=== PATIENT | female | born 2000 | race Caucasian/White ===

== ENCOUNTER 2025-07-01 15:56 | Outpatient (CLI) | payer OTHER, SELFPAY ==
--- NOTE | ~2025-07-01 | XR_ITS ---
EXAMINATION: XR sacroiliac joints min 3V, 07/01/2025 16:10 CDT HISTORY: chronic right-sided low back pain wo sciatica, bulging disc COMPARISON: No comparisons available. Findings: No acute fracture or malalignment. There is no sclerosis of the sacroiliac joints, no erosions, no bridging osteophyte formation Soft tissues unremarkable. Impression: No acute fracture or malalignment. Reviewed, dictated and finalized at location P. Impression: No acute fracture or malalignment.
--- OUTSIDE RECORDS SUMMARY | 2025-07-01 16:16 | XMS_ITS | Encounter Summary ---
Author Organization [facility] Address [address] [place] [address] Phone Care Team Providers Care Information Systems Coordinator Name Role Phone Candy Barbosa MD Unavailable [phone] Gunner Guzman MD Unavailable [facility] Keyur Locke MD Primary Care Provider [phone] Encounter Details Date Type Department Care Team (Late st Contact Info) Description 02/18[facility] [address] [place] [address] Antoinette Goldberg MD [address] [place] [address] Other primary thrombophilia; Raised antibody titer; Activated protein C resistance (HCC); Complete or unspecified spontaneous without complication; Excessive and frequent menstruation with regular cycle; Spontaneous ecchymoses Social History Tobacco Use Types Packs/Day Years Used Date Smoking Tobacco: Never Smokeless Tobacco: Never Alcohol Use Standard Drinks/Week Comments Yes 0 (1 standard drink = 0.6 oz pur e alcohol) Socially [facility] Utilities Answer Date Recorded In the past 12 months has th e electric, gas, oil, or water company threatened to shut off services in your home? No 01/28/2025 Social Connection and Isolation Panel Answer Date Recorded In a typical week, how many times do you talk on the phone with family, friends, or neighbors? More than three times a week 01/28/2025 How often do you get togethe r with friends or relatives? Three times a week 01/28/2025 How often do you attend chur ch or buddhism services? Never 01/28/2025 Do you belong to any clubs o r organizations such as sabianist groups, unions, fraternal or athletic groups, or school groups? No 01/28/2025 How often do you attend meet ings of the clubs or organizations you belong to? Never 01/28/2025 Are you , , di vorced, , never , or living with a partner? 01/28/2025 AUDIT-C Answer Date Recorded Q1: How often do you have a drink containing alc ohol? Monthly or less 01/28/2025 Q2: How many drinks containi ng alcohol do you have on a typical day when you are drinking? 3 or 4 01/28/2025 Q3: How often do you have si x or more drinks on one occasion? Less than monthly 01/28/2025 Overall Financial Resource Strain (CARDIA) Answe r Date Recorded How hard is it for you to pa y for the very basics like food, housing, medical care, and heating? Not hard at all 01/28/2025 [facility] - Occupational Stress Questionnaire Answer Date Recorded Do you feel stress - tense, restless, nervous, or anxious, or unable to sleep at night because your mind is troubled all the time - these days? Not at all 01/28/2025 Exercise Vital Sign Answer Date Recorde d On average, how many days pe r week do you engage in moderate to strenuous exercise (like a brisk walk)? 3 days 01/28/2025 On average, how many minutes do you engage in exercise at this level? 40 min 01/28/2025 Hunger Vital Sign Answer Date Recorded Within the past 12 months, y ou worried that your food would run out before you got the money to buy more. Never true 01/29/20 25 Within the past 12 months, t he food you bought just didn't last and you didn't have money to get more. Never true 01/28/2025 PRAPARE - Transportation Answer Date Re corded In the past 12 months, has l ack of transportation kept you from medical appointments or from getting medications? No 01/17 In the past 12 months, has l ack of transportation kept you from meetings, work, or from getting things needed for daily living? No 01/28/2025 Housing Stability Vital Sign Answer Gabino e Recorded In the last 12 months, was t here a time when you were not able to pay the mortgage or rent on time? No 01/28/2025 In the past 12 months, how m any times have you moved where you were living? 0 01/28/2025 At any time in the past 12 m [facility], were you homeless or living in a prison (including now)? 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 Gender Identity Not on file Sexual Orientation Not on file documented as of this encounter Plan of Treatment Not on file documented as of this encounter Procedures Procedure Name Priority Date/Time Associated Diagnosis Comments FERRITIN Routine 02/18/2025 10:15 AM CDT Other primary thrombophilia Raised antibody titer Activated protein C resistance (HCC) Complete or unspecified spontaneous without complication Excessive and frequent menstruation with regular cycle Spontaneous ecchymoses documented in this encounter Results * FERRITIN (02/18/2025 10:15 AM CDT) FERRITIN 94 5 - 204 ng/mL 02/18/2025 8:37 PM CDT [facility] Blood 02/18/2025 10:1 5 AM CDT 02/18/2025 7:08 PM CDT us Antoinette Atkins MD CHEMISTRY ORDER NILDA Final Result [facility] [address] [place] [address], documented in this encounter Visit Diagnoses Diagnosis Other primary thrombophilia Raised antibody titer Other and unspecified nonspecific immunological findings Activated protein C resistance Primary hypercoagulable state Complete or unspecified spontaneous without complication Reserved for inherently not codable concepts WITHOUT codable children Excessive and frequent menstruation with regular cycle Excessive or frequent menstruation Spontaneous ecchymoses documented in this encounter Care Teams Information Systems Coordinator Relationship Specialty Start Date End Date Keyur Locke MD [address] [place] [address] [facility] [address] [place] [address] PCP - General Family Medicine 01/30/25 Candy Barbosa MD [address] [place] [address] Consulting Physician Neurology 02/15/14 Gunner Guzman MD [address] [place] [address] Consulting Physician Neurology with Special Qualification in Child Neurology 06/20/17 documented as of this encounter
--- OUTSIDE RECORDS SUMMARY | 2025-07-01 16:16 | XMS_ITS | Clinical Summary ---
Author Organization [place] [address] [address] [facility] Address [address] [place] [address] Care Team Providers Care Electronic Specialist Name Role Phone Keyur Locke MD Primary Care Provider Allergies Active Allergy Reactions Criticality Noted Date Comments Amoxicillin Hives,Rash High 07/18/2012 Beef Containing Products Nausea And Vomiting Medium Cefprozil Hives,Rash Medium 07/18/2012 Chicken Derived Nausea And Vomiting Medium 06/21/2023 Clindamycin Hives,Rash Medium 07/18/2012 [place] Containing Products Nausea And Vomiting Medium Divalproex Sodium Hives,Rash Medium 07/18/2012 And vomiting Lactulose Unknown 07/18/2012 Nut Flavor Anaphylaxis,Hives,Sh or tness of breath High 03/29/2023 Peas Nausea And Vomiting,Nausea & Vomiting Medium 06/21/2023 Medications Trelegy Ellipta 200-62.5-25 mcg inhaler INHALE 1 PUFF INTO LUNGS EVERY 24 HOURS Active montelukast (SINGULAIR) 10 mg tablet Take 1 tablet (10 mg total) by mouth nightly 06/04/2025 Active Active Problems Problem Noted Date Diagnosed Date Chronic right-sided low back pain without sciati ca 06/21/2025 Assessment & Plan (06/21/2025 12:19 PM CDT): She does describe low back pain/stiffness which sounds inflammatory, though do not suspect that this is relevant in terms of her miscarriages it does warrant additional evaluation. Will obtain SI joint xray. Positive CLARISSA (antinuclear antibody) 06/20/2025 Assessment & Plan (06/21/2025 12:18 PM CDT): 24yoF presents for evaluation due to labs showing a +CLARISSA (no titer) with an PROOF CARRIER of 2.7. 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 She denies inflammatory sounding peripheral joint pain, though does have axial complaints (see below). She reports many rashes with environmental allergies, dry eyes with contacts, and painful oral ulcers. Denies other active CTD symptoms. Her exam today is largely unremarkable, mild tenderness of a couple joints in her hands though these do not give her trouble. Overall low suspicion that the PROOF CARRIER is clinically significant, reviewed the nonspecific nature of an CLARISSA. Will plan to obtain the AVISE panel to evaluate further and follow up in 2 weeks to review results. Encounters Date Type Department Care Team Description 06/21/2025 10:00 AM CDT Office Visit [facility] [address] [place] [phone] Crystal Wilson PA Positive CLARISSA (antinuclear antibody) (Primary Dx); Chronic right-sided low back pain without sciatica from Last 3 Months Social History Tobacco Use Types Packs/Day Years Used Date Smoking Tobacco: Never Assessed Comments Unknown Sex and Gender Information Value Date Recorded Sex Assigned at Not on file Legal Sex Female 8:19 AM CDT Gender Identity Not on file Sexual Orientation Not on file Obstetrics History Last Filed Vital Signs Vital Sign Reading Time Taken Comments Blood Pressure 102/60 06/21/2025 9:41 AM CDT Pulse 96 06/21/2025 9:41 AM CDT Temperature - - Respiratory Rate - - Oxygen Saturation 96% 06/21/2025 9:41 AM CDT Inhaled Oxygen Concentration - - Weight 98.4 kg (217 lb) 06/21/2025 9:41 AM CDT Height - - Body Mass Index - - Plan of Treatment Health Maintenance Due Date Last Done Comments Cervical Cancer Screening 2000 Depression Screening 2000 Hepatitis C Screening 2000 Varicella Vaccines (1 of 2 - 13+ 2-dose series) 2013 Regular Well Visit/Exam 18-64 2018 Pneumococcal vaccine <65 (1 of 2 - PCV) 2019 DTaP/Tdap/Td Vaccine (7 - Td or Tdap) 02/24/2022 02/25/2012, 02/08/2006, 10/26/2001, Additional history exists Influenza Vaccine (#1) 2025 , 09/22/2020, 08/23/2018, Additional history exists Hepatitis B Screening Completed 07/28/2001 , 2000, 2000 HPV Vaccines Completed 01/21/2015, 02/18, 04/04/2013 Insurance [facility] H[facility]/PPO Address: [place] [address] Care Teams Electronic Specialist Relationship Specialty Start Date End Date Keyur Locke MD [facility] LILIANA HUGO [address] [address] PCP - General Family Medicine 05/09/25
--- OUTSIDE RECORDS SUMMARY | 2025-07-01 16:16 | XMS_ITS | Encounter Summary ---
Author Organization [facility] Address [address] [place] [address] Phone Care Team Providers Care Director Of Volunteer Services Name Role Phone JessicajoseCandy MD Unavailable [phone] Gunner Guzman MD Unavailable Ashley James APRN, CNP Primary Care Provider Keyur Locke MD Primary Care Provider [phone] Encounter Details Date Type Department Care Team (Late st Contact Info) Description 12/14/2024 [facility] [address] [place] [address] Belia Falk MD [facility] [address] [address] Social History Tobacco Use Types Packs/Day Years Used Date Smoking Tobacco: Never Smokeless Tobacco: Never Alcohol Use Standard Drinks/Week Comments No 0 (1 standard drink = 0.6 oz pur e alcohol) Comments No Sex and Gender Information Value Date Recorded Sex Assigned at Not on file 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 Gender Identity Not on file Sexual Orientation Not on file documented as of this encounter Plan of Treatment Not on file documented as of this encounter Procedures Procedure Name Priority Date/Time Associated Diagnosis Comments PATHOLOGY SURGICAL Routine 12/14/2024 1: 15 PM CDT documented in this encounter Results * PATHOLOGY SURGICAL (12/14/2024 1:15 PM CDT) Case Report Surgical Pathology Report Case: [id number] Authorizing Provider: Belia Falk MD Collected: 12/14/2024 01:15 PM Ordering Location: [facility] Received: 12/14/2024 06:07 PM [facility] Laboratory Services Pathologist: Vivi Hussein MD Specimen: Products Of Conception 12/20/2024 10:49 AM CDT [facility] FINAL DIAGNOSIS A. Products of conception: Endometrium and decidual tissue. Negative for chorionic villi. 12/20/2024 10:49 AM CDT [facility] at 1049 CDT Gross Description A. Products Of Conception Received fresh labeled products of conception, Namita Nguyen. Spongy pieces of purple-martínez tissue and blood clot, in aggregate 2.2 x 2 x 0.4 cm. No parts or cystic structures are grossly noted. Entirely submitted in a single cassette. Cherrie Reese 12/20/2024 10:49 AM CDT [facility] Microscopic Description Microscopic examination performed. Dr Belia Falk notified of the diagnosis on 12/20/2024 at 10:49 a.m. Specimen processed and evaluated at [facility], [place], [place]. This document was completed utilizing speech recognition software. Grammatical errors, random word insertions, pronoun errors, and incomplete sentences are an occasional consequence of this system due to software limitations, ambient noise, and hardware issues. Any formal questions or concerns about the content, text or information contained within the body of this dictation should be directly addressed to the provider for clarification. 12/20/2024 10:49 AM CDT [facility] Other PRODUCTS OF CONCEPTION TISSUE SPECIMEN / Unknown 12/14/2024 1:15 PM CDT 12/14/2024 6:07 PM CDT us Belia Falk MD PATHOLOGY/CYTOLOGY ORDERABLES Fi nal Result [facility] [address] [place] [place] [address], [place] documented in this encounter Visit Diagnoses Not on filedocumented in this encounter Care Teams Director Of Volunteer Services Relationship Specialty Start Date End Date Ashley Tariq, THERAPY TEACHER, LOOPER FIXER [address] [facility] [place] [address] PCP - General Certified Nurse Practitioner 02/24/21 01/29/25 Keyur Locke MD [address] [place] [address] [address] [place] [address] PCP - General Family Medicine 01/30/25 Candy Barbosa MD [address] [place] [address] Consulting Physician Neurology 02/15/14 Gunner Guzman MD [address] [place] [address] Consulting Physician Neurology with Special Qualification in Child Neurology 06/20/17 documented as of this encounter
--- OUTSIDE RECORDS SUMMARY | 2025-07-01 16:16 | XMS_ITS | Encounter Summary ---
Author Organization [facility] Address [address] [place] [address] Phone Care Team Providers Care Ela Teacher Name Role Phone Candy Barbosa MD Unavailable [phone] Gunner Guzman MD Unavailable Ashley James APRN, CNP Primary Care Provider Keyur Locke MD Primary Care Provider [phone] Reason for Referral * Laboratory Services (Routine) - Closed Specialty Diagnoses / Procedures Referred By Contdelmer t Referred To Contact Diagnoses History of recurrent miscarriages, not currently Procedures FACTOR 2 PROTHROMBIN GENE Belia Falk MD [address] [address] Phone: tel: fax: Referral ID Status Reason Start Date Expiration Date Visits Re quested Visits Authorized [id number] Closed 01/03/2025 1 1 * Laboratory Services (Routine) - Closed Specialty Diagnoses / Procedures Referred By Contdelmer ba Referred To Contact Diagnoses History of recurrent miscarriages, not currently Procedures FACTOR 5 LEIDEN GENE MUTATION Belia Falk MD [address] [address] Phone: tel: fax: Referral ID Status Reason Start Date Expiration Date Visits Re quested Visits Authorized [id number] Closed 01/03/2025 1 1 Encounter Details Date Type Department Care Team (Latest Contact Info) Description 01/03/2025 Transcribe Orders [facility] Patient Access Admitting [address] [place] [id number] Belia Falk MD [address] [facility] [address] [place] [address] History of recurrent miscarriages, not currently (Primary Dx) Social History Tobacco Use Types Packs/Day Years Used Date Smoking Tobacco: Never Smokeless Tobacco: Never Alcohol Use Standard Drinks/Week Comments No 0 (1 standard drink = 0.6 oz pur e alcohol) Comments No Sex and Gender Information Value Date Recorded Sex Assigned at Not on file 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 If indicated consider PC activity assay. ADDITIONAL INFORMATION This test has been modified from the insulation worker interior surface's instructions. Its performance characteristics were determined by [facility] in a manner consistent with CLIA requirements. This test has not been cleared or approved by the U.S. Food and Drug Administration. Test Performed by: [address] [address] Labor And Delivery Registered Nurse: Lucita Rojas Ph.D.; CLIA# [id number] Blood Butterfly Punctu re / Unknown 01/03/2025 2:39 PM CDT 01/03/2025 2:39 PM CDT us Belia Falk MD LAB SEND OUTS Final Result [facility] * (ABNORMAL) HANNAH PANEL (01/03/2025 2:39 PM CDT) DNA AB, DOUBLE STRAND <1 <5 IU/mL 01/03/2025 4:40 PM CDT [facility] Comment: <= 4 Negative 5-9 Indeterminate >= 10 Positive CHROMATIN AB 0.2 <1.0 AI 01/03/2025 4:40 PM CDT [facility] RIBOSOMAL P AB <0.2 <1.0 AI 01/03/2025 4:40 PM CDT [facility] SS-A <0.2 <1.0 AI 01/03/2025 4:40 PM CDT [facility] SS-B 0.2 <1.0 AI 01/03/2025 4:40 PM CDT [facility] CENTROMERE B AB <0.2 <1.0 AI 4:40 PM CDT [facility] SM ANTIBODY <0.2 <1.0 AI 01/03/2025 4:40 PM CDT [facility] SM GENERATOR REPAIRER <0.2 <1.0 AI 01/03/2025 4:40 PM CDT [facility] GENERATOR REPAIRER AB 3.0(H) <1.0 AI 01/03/2025 4:40 PM CDT [facility] SCL-70 <0.2 <1.0 AI 01/03/2025 4:40 PM CDT [facility] TINA-1 <0.2 <1.0 AI 01/03/2025 4:40 PM CDT [facility] Blood Butterfly Punctu re / Unknown 01/03/2025 2:39 PM CDT 01/03/2025 2:39 PM CDT Narrative [facility] - 01/03/2025 4:40 PM CDT Antibody testing was performed by multiplex flow immunoassay on the BioPlex platform. us Belia Falk MD IMMUNOLOGY ORDERABLES Final Resu lt Performing Organization Address [facility]/ZIP Co de Phone Number [facility] [address] [place] [address], [place] * (ABNORMAL) CLARISSA SCREEN MULTIPLEX W/REFLEX HANNAH (01/03/2025 2:39 PM CDT) CLARISSA SCR MULTIPLEX Positive(A ) Negative, See comment 01/03/2025 7:35 PM CDT [facility] Blood Butterfly Punctu re / Unknown 01/03/2025 2:39 PM CDT 01/03/2025 2:39 PM CDT Narrative [facility] - 01/03/2025 7:35 PM CDT Antibody testing was performed by multiplex flow immunoassay on the BioPlex platform. us Belia Falk MD IMMUNOLOGY ORDERABLES Final Resu lt Performing Organization Address City/[facility]/ZIP Co de Phone Number [facility] [address] [place] [address], [place] * (ABNORMAL) LUPUS ANTICOAG PROFILE (01/03/2025 2:39 PM CDT) INR 1.0 0.9 - 1.2 01/04/2025 12:16 PM CDT [facility] THROMBIN TIME 16.4 15.1 - 18.5 sec 01/04/2025 12:16 PM CDT [facility] PROTIME-PATIEN T 13.6 11.6 - 14.8 sec 01/04/2025 12:16 PM CDT [facility] APTT-LA 46.1(H) 30.6 - 38.8 sec 01/04/2025 12:16 PM CDT [facility] DRVV SCREEN RATIO 1.2 <=1.2 ratio 01/04/2025 12:16 PM CDT [facility] Blood Butterfly Punctu re / Unknown 01/03/2025 2:39 PM CDT 01/03/2025 2:39 PM CDT Narrative [facility] - 01/04/2025 12:16 PM CDT See Rogelio West for result comment us Belia Falk MD HEMATOLOGY ORDERABLES Final Resu lt Performing Organization Address [facility] Co de Phone Number [facility] [address] [place] [address], [place] * ANTI CARDIOLIPIN IGG (01/03/2025 2:39 PM CDT) CARDIOLIPIN IGG <1.6 <20.0 GPL-U/mL 01/03/2025 4:40 PM CDT [facility] Blood Butterfly Punctu re / Unknown 01/03/2025 2:39 PM CDT 01/03/2025 2:39 PM CDT Narrative [facility] - 01/03/2025 4:40 PM CDT Antibody testing was performed by multiplex flow immunoassay on the digitalbox platform. us Belia Falk MD IMMUNOLOGY ORDERABLES Final Resu lt Performing Organization Address City/[facility] Co de Phone Number [facility] [address] [place] [address], [place] * PROTEIN S ACTIVITY (01/03/2025 2:39 PM CDT) PROTEIN S ACTIVITY 87.0 65 - 129 % 01/04/2025 10:20 AM CDT [facility] Blood Butterfly Punctu re / Unknown 01/03/2025 2:39 PM CDT 01/03/2025 2:39 PM CDT us Belia Falk MD HEMATOLOGY ORDERABLES Final Resu lt Performing Organization Address City/[facility]/ZIP Co de Phone Number [facility] [address] [place] [address], [place] * PROTEIN C ACTIVITY (01/03/2025 2:39 PM CDT) PROTEIN C ACTIVITY 98.0 79 - 175 % 01/04/2025 10:21 AM CDT [facility] Blood Butterfly Punctu re / Unknown 01/03/2025 2:39 PM CDT 01/03/2025 2:39 PM CDT us Belia Falk MD HEMATOLOGY ORDERABLES Final Resu lt Performing Organization Address [facility]/ZIP Co de Phone Number [facility] [address] [place] [address], [place] * ANTI THROMBIN III ACTIVITY (01/03/2025 2:39 PM CDT) ANTITHROMBIN III 108 82 - 139 % 01/04/20 3:37 PM CDT [facility] Blood Butterfly Punctu re / Unknown 01/03/2025 2:39 PM CDT 01/03/2025 2:39 PM CDT us Belia Falk MD HEMATOLOGY ORDERABLES Final Resu lt Performing Organization Address City/[facility]/ZIP Co de Phone Number [facility] [address] [place] [address], [place] * FACTOR 2 PROTHROMBIN GENE (01/03/2025 2:39 PM CDT) PROTHROMBIN GENE Normal (Homozygou s wild-type genotype) Normal (Homozygo us wild-type genotype) [facility] CEPHEID GENEXPERT 01/04/2025 10:12 AM CDT [facility] Comment: Sample is negative for the Factor II (Prothrombin) [id number] mutation (i.e., no mutant allele present). Increased risk of thrombophilia can be caused by a variety of genetic and non- genetic factors not screened by this assay. Assay performed by real time PCR, with allele-specific probe. Since genetic variation and other factors can affect the accuracy of direct mutation testing, these results should be interpreted in light of clinical and familial data. Blood Butterfly Punctu re / Unknown 01/03/2025 2:39 PM CDT 01/03/2025 2:39 PM CDT us Belia Falk MD IMMUNOLOGY ORDERABLES Final Resu lt [facility] [address] [place] [address], * (ABNORMAL) FACTOR 5 LEIDEN GENE MUTATION (01/03/2025 2:39 PM CDT) FACTOR 5 LEIDEN MUT Homozygous (Homozygous mutant genotype)(A) Normal (Homozygo us wild-type genotype) [facility] CEPHEID GENEXPERT 01/04/2025 10:13 AM CDT [facility] Comment: Sample is positive for the Factor V Leiden [id number] mutation (i.e., two mutant alleles are present). The Factor V Leiden mutation in the Factor V gene is one of the most common causes of inherited thrombophilia. This mutation causes resistance to degradation of activated Factor V protein by activated protein C (APC). Individuals positive for a point mutation at position 1691 of the Factor V gene (Factor V Leiden mutation) have elevated risk for venous thrombosis. In addition, other family members may also be carriers of the mutation and similarly at risk. Consider genetic counseling and DNA testing for other at-risk family members. Assay performed by real time PCR, with allele-specific probe. Since genetic variation and other factors can affect the accuracy of direct mutation testing, these results should be interpreted in light of clinical and familial data. Blood Butterfly Punctu re / Unknown 01/03/2025 2:39 PM CDT 01/03/2025 2:39 PM CDT us Belia Falk MD IMMUNOLOGY ORDERABLES Final Resu lt [facility] [address] [place] [address], documented in this encounter Visit Diagnoses Diagnosis History of recurrent miscarriages, not currently - Primary Recurrent loss without current documented in this encounter Care Teams Ela Teacher Relationship Specialty Start Date End Date Ashley Tariq, BUSINESS PLANNER, RETAIL WIRELESS SALES CONSULTANT [address] [place] [address] PCP - General Certified Nurse Practitioner 02/24/21 01/29/25 Keyur Locke MD [address] [place] [address] [address] [place], [place] [address] PCP - General Family Medicine 01/30/25 Candy Barbosa MD [address] [place] [address] Consulting Physician Neurology 02/15/14 Gunner Guzman MD [address] [place] [address] Consulting Physician Neurology with Special Qualification in Child Neurology 06/20/17 documented as of this encounter
--- OUTSIDE RECORDS SUMMARY | 2025-07-01 16:16 | XMS_ITS | Clinical Summary ---
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 Name Role Phone Candy Barbosa MD Unavailable Gunner Guzman MD Unavailable Keyur Odom MD Primary Care Provider [phone] Allergies Active Allergy Reactions Criticality Noted Date Comments Amoxicillin Rash 07/18/2012 Beef-Derived Drug Products Vomiting Medium 06/21/2023 Cefprozil Hives 07/18/2012 Chicken Meat (Diagnostic) Vomiting Medium 06/21/2023 Clindamycin Hives 07/18/2012 Plymouth-Containing Products Vomiting Medium 06/21/2023 Divalproex Sodium Hives 07/18/2012 And vomiting Divalproex Sodium Rash Low 06/23/2016 Lactulose Unknown 07/18/2012 Lactulose Unknown 07/18/2012 Pea Vomiting Medium 06/21/2023 Peanut (Diagnostic) Anaphylaxis,Hives,Sh or tness of Breath High 03/29/2023 Medications loratadine (CLARITIN) 10 MG Tablet Take 10 mg by mouth daily. Active EPINEPHrine (EPIPEN) 0.3 MG/0.3ML Solution Auto-injector 0.3 mg by Intramuscular route. 2 Active albuterol 108 (90 Base) MCG/ACT Aerosol SolutionIndicat ions:Acute bronchitis, unspecified organism,Acute cough take 2 Puffs by inhalation every 4 hours as needed for Wheezing. 18 g 4 Active diphenhydrAMINE HCl (BENADRYL PO) Take by mouth. Activ e Trelegy Ellipta 200-62.5-25 MCG/ACT AEROSOL POWDER, BREATH ACTIVATED take 1 Puff by inhalation daily. 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 Class 2 obesity due to exces s calories without serious comorbidity with body mass index (BMI) of 38.0 to 38.9 in adult 02/10/2025 Positive CLARISSA (antinuclear antibody) 02/10/2025 Other fatigue 02/10/2025 Cough 04/03/2024 POTS (postural orthostatic tachycardia syndrome) 08/15/2023 Bulge of lumbar disc without myelopathy 07/08/20 14 Abdominal pain 07/19/2012 Allergic rhinitis 06/14/2008 Overview (12/02/2024): MADAI PETER MD Absence seizure Resolved Problems Problem Noted Date Diagnosed Date Resolved Date Breakthrough seizure 09/29/2014 015 Dizziness 09/29/2014 10/01/2014 Tingling sensation of right face 09/29/2014 10/01/2014 Immunizations Immunization Administration Dates Next Due DTAP VACCINE 02/08/2006, 2,01/23/2001,11/21,2000 HEP B/HIB Combined Vaccine 07/28/2001,2000 ,2000 Hepatitis A Vaccine, Pediatric/adolescent, 2 Dose Schedule 03/12/2014,02/25/2012 Human Papillomavirus Vaccine (HPV), quadrivalent 01/21/2015,03/12/2014,04/04/2013 Inactivated Polio Vaccine 02/08/2006,05/2001,2000,09/22 Influenza Vaccine 07/19/2012 Influenza Vaccine, Quadrivalent, PF 10/0 11/2022,09/22/2020,08/23/2018,07/14,08/25/2016 Influenza, Injectable, Quadrivalent 06/24/2014,1 10/11/2009 MMR Vaccine 02/08/2006,07/28/2001 Meningococcal Vaccine 08/22/2017,02/25/2012 RHO D IG FULL DOSE 300 MCG IM 11/17/2024 Rho(d) Immune Globulin - Im 06/02/2024 TDAP Vaccine 02/25/2012 Tuberculin Skin Test; Purifi ed Protein Derivative Solutiol 11/07/2018,10/23/2018,09/04/2018,08/23 Family History Medical History Relation Name Comments Stroke Maternal Grandfather Chin Cancer Maternal Grandmother Ladan Breast/ Ovarian Cancer Thyroid Disease Mother Hussein Cancer Paternal Grandfather Gene Congestive Heart Failure Paternal Grandfather Gene Rheumatoid Arthritis Paternal Grandfather Gene Diabetes Paternal Grandmother Niharika Relation Name Status Comments Father Alive Maternal Grandfather Chin Alive Maternal Grandmother Ladan Alive Mother Hussein Alive Paternal Grandfather Gene Alive Paternal Grandmother Niharika Alive Social History Tobacco Use Types Packs/Day Years Used Date Smoking Tobacco: Never Smokeless Tobacco: Never Tobacco Cessation:Counseling Given: Not Answered Alcohol Use Standard Drinks/Week Comments Yes 0 (1 standard drink = 0.6 oz pur e alcohol) Socially [employer] Utilities Answer Date Recorded In the past 12 months has [employer], gas, oil, or water [employer] threatened to shut off services in your [...] often do you attend chur ch or adventism services? Never 01/28/2025 Do you belong to any clubs o r organizations such as holiness groups, unions, fraternal or athletic groups, or [...] and heating? Not hard at all 01/28/2025 [facility] - [...] time in the past 12 m [facility], were you homeless or living in a custodial (including now)? 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 Gender Identity Not on file Sexual Orientation Not on file Last Filed Vital Signs Vital Sign Reading Time Taken Comments Blood Pressure 110/70 02/15/2025 1:49 PM CDT Pulse 102 02/15/2025 1:49 PM CDT Temperature 36.6 C (97.9 F) 02/15/2025 1:49 PM CDT Respiratory Rate 20 02/15/2025 1:49 PM CDT Oxygen Saturation 98% 02/15/2025 1:49 PM CDT Inhaled Oxygen Concentration - - Weight 90.7 kg (200 lb) 02/15/2025 1:49 PM CDT Height 160 cm (5' 3) 02/15/2025 1:49 PM CDT Body Mass Index 35.43 02/15/2025 1:49 PM CDT Plan of Treatment Health Maintenance Due Date Last Done Comments Hepatitis C Virus (HCV) Screening 2000 Pneumococcal Immunization Combined (1 of 2 - PCV) 2019 Pap Smear 2021 DTaP/Tdap/Td Immunization (7 - Td or Tdap) 02/24/2022 02/25/2012, 02/08/2006, 10/26/2001, Additional history exists Influenza Immunization (#1) 05/20/202511/2022, 09/22/2020, 08/23/2018, Additional history exists SARS-COV-2 Immunization ( season) 2025 09/17/2021, 10/20/2020, 09/18/2020 Respiratory Syncytial Virus (RSV) Immunization (Adult) (1 - 1-dose 75+ series) 2075 Hepatitis B Immunization Completed 001, 2000, 2000 TdaP Immunization Discontinued 02/25/2012 Human Papillomavirus (HPV) Immunization Completed 01/21/2015, 03/12/2014, 04/04/2013 Meningococcal Immunization (ACWY) Completed 08/22/2017, 02/25/2012 Rotavirus Immunization Aged Out No lo nger eligible based on patient's age to complete this topic Insurance [facility] Advance Directives * Full Code (Latest Code Status on File) Date Activated Date Inactivated Comments 09/30/2014 12:16 AM 10/01/2014 11:12 PM Full Code: FULL ARREST: Attempt Resuscitation/CPR and use intubation and mechanical ventilation as indicated. PRE-ARREST: Use all measures to stabilize patient. * Full Code Date Activated Date Inactivated Comments 07/20/2012 4:55 PM 07/22/2012 6:17 PM * Full Code Date Activated Date Inactivated Comments 07/18/2012 3:06 PM 07/19/2012 7:22 PM Care Teams Ladies Underwear Operator Relationship Specialty Start Date End Date Keyur Locke MD [address] [place] [address] [address] PCP - General Family Medicine 01/30/25 Candy Barbosa MD [address] [place] [address] Consulting Physician Neurology 02/15/14 Gunner Guzman MD [address] [place] [address] Consulting Physician Neurology with Special Qualification in Child Neurology 06/20/17
== END 2025-07-01 15:57 | disposition home or self-care (01) ==
PROVIDERS: Visit Provider Physician Assistant
DX: M54.50 Low back pain, unspecified (principal); G89.29 Other chronic pain
CPT/HCPCS: 72202